=== PATIENT | male | born 1955 | race Caucasian/White ===

== ENCOUNTER 2017-06-05 03:49 | Emergency (ER) | payer OTHER ==
[~2017-06-05] VITALS: Ht 175.3 cm; Wt 104.3 kg
--- NOTE | 2017-06-05 04:00 | NUR ---
PT A/OX4 BREATHING EFFORTLESSLY ON ROOM AIR, PT WAS BIBA FROM [facility], PT STATES HE WAS SLEEPING AND WAS WOKEN UP FROM HIS SLEEP WITH PAIN IN HIS RIGHT TESTICLE, PT STATES HE THINKS HE HAS ANOTHER KIDNEY STONE, PT ON MONITOR, IV PLACED, LABS DRAWN, MD IN ROOM WILL CONTINUE TO MONITOR.
[2017-06-05] MEDS ORDERED: ONDANSETRON HCL/PF 4 MG/2 ML VIAL ONE (04:13)
[2017-06-05] MEDS ORDERED: HYDROMORPHONE INJ 0.5 MG/0.5 ML SYRINGE ONE ×2 (04:13→05:54)
[2017-06-05] MEDS ORDERED: KETOROLAC TROMETHAMINE 15 MG/ML VIAL ONE (04:13)
[2017-06-05 04:19] LABS: BASOPHILS % (AUTO) 0.5 % (0.0-2.0); EOSINOPHILS # (AUTO) 0.2 /CMM (0.0-0.7); EOSINOPHILS % (AUTO) 2.4 % (0.0-6.0); HEMATOCRIT 51 % (39-51); HEMOGLOBIN 17.6 g/dL (13.5-17.5); LYMPHOCYTES # (AUTO) 2.5 /CMM (0.8-4.8); LYMPHOCYTES % (AUTO) 37.3 % (20.0-44.0); MEAN CORPUSCULAR HEMOGLOBIN 29 PG (26.0-33.0); MEAN CORPUSCULAR HGB CONC 34 g/dl (31.0-36.0); MEAN CORPUSCULAR VOLUME 84 fL (80-96); MONOCYTES # (AUTO) 0.6 /CMM (0.1-1.30); MONOCYTES % (AUTO) 8.8 % (2.0-12.0); NEUTROPHILS # (AUTO) 3.4 /CMM (1.8-8.9); PLATELET COUNT (AUTO) 227 /CMM (150-450); RDW COEFFICIENT OF VARIATION 13.2 (11.5-15.0); RED BLOOD CELL COUNT(AUTO) 6.13 MIL/uL (4.5-6.0); WHITE BLOOD COUNT (AUTO) 6.7 K/uL (4.3-11.0)
[2017-06-05 04:28] LABS: CALCIUM, SERUM 9.3 mg/dL (8.5-10.1); CREATININE 1.2 mg/dL (0.6-1.3); POTASSIUM 3.9 mmol/L (3.5-5.1)
[2017-06-05] MEDS ORDERED: KETOROLAC TROMETHAMINE INJ 30 MG/ML VIAL IV ONE (04:30)
[2017-06-05] MEDS ORDERED: ONDANSETRON HCL/PF 4 MG/2 ML VIAL IVP ONE (04:30)
[2017-06-05] MEDS ORDERED: HYDROMORPHONE INJ 2 MG/ML DISP.SYRIN IV ONE (04:30)
[2017-06-05] MEDS ORDERED: IV NS 0.9% 1,000 ML BAG IV ONE (04:30)
--- NOTE | 2017-06-05 04:31 | NUR ---
URINE COLLECTED AND SENT TO LAB
[2017-06-05 04:38] LABS: APPEARANCE,URINE CLEAR (CLEAR); BILIRUBIN,URINE NEGATIVE (NEGATIVE); BLOOD, URINE NEGATIVE Ery/uL (NEGATIVE); COLOR,URINE YELLOW (YELLOW); KETONES,URINE NEGATIVE (NEGATIVE); LEUKOCYTE ESTERASE ,URINE NEGATIVE (NEGATIVE); NITRITE, URINE NEGATIVE (NEGATIVE); PH,URINE 5.5 (5.0-8.0); PROTEIN,URINE NEGATIVE (NEGATIVE); UGLUCOSE NEGATIVE (NEGATIVE); UROBILINOGEN,URINE 0.2 EU/dL (0.2)
[2017-06-05] MEDS ORDERED: HYDROMORPHONE INJ 0.5 MG/0.5 ML SYRINGE IV ONE (06:00)
--- NOTE | 2017-06-05 06:03 | NUR ---
PT IN BED ON MONITOR, VSS, PT IS A/OX4 BREATHING EFFORTLESSLY ON ROOM AIR, PT IS FEELING BETTER AFTER PAIN MEDICINE MD MADE AWARE WILL CONTINUE TO MONITOR.
--- NOTE | 2017-06-05 06:40 | NUR ---
REPORT GIVEN TO EMT
[2017-06-05 06:47] VITALS: BP 140/83
== END 2017-06-05 06:49 ==
LOC: ER 03:51
DX: N20.1 Calculus of ureter (principal); I10 Essential (primary) hypertension; F32.9 Major depressive disorder, single episode, unspecified; F41.9 Anxiety disorder, unspecified; Z88.0 Allergy status to penicillin; Z88.1 Allergy status to other antibiotic agents
CPT/HCPCS: 36415; 76870; 80048; 81001; 85025; 87086; 96361; 96374; 96375; 96376; 99285; A4606; J1885; J2405; J7030; Z7610; 81000-TC

== ENCOUNTER 2017-06-29 20:10 | Inpatient (IN) | payer OTHER ==
[~2017-06-29] VITALS: Ht 172.7 cm; Wt 107.5 kg
--- NOTE | 2017-06-29 20:10 | NUR ---
BBRA FROM [facility] PT NOTED WITH COUGH AND CONGESTION X TODAY WITH WEAKNESS GENERALIZED. UPON AUSCULTATION HEARD CONGESTION UPPER BILATERAL LOBES. A/OX4 VSS NAD WILL CONTINUE TO MONITOR FOR ANY CHANGES
[2017-06-29] MEDS ORDERED: IV NS 0.9% 1,000 ML BAG IV ONE (20:30)
--- NOTE | 2017-06-29 20:45 | NUR ---
BLOOD SENT TO LAB WITH GENERAL LABORER
[2017-06-29 20:48] LABS: BASOPHILS # (AUTO) 0.2 /CMM (0.0-0.2); BASOPHILS % (AUTO) 2.6 % (0.0-2.0); EOSINOPHILS # (AUTO) 0.1 /CMM (0.0-0.7); EOSINOPHILS % (AUTO) 2.3 % (0.0-6.0); HEMATOCRIT 49 % (39-51); HEMOGLOBIN 17.2 g/dL (13.5-17.5); LYMPHOCYTES # (AUTO) 1.3 /CMM (0.8-4.8); LYMPHOCYTES % (AUTO) 21.3 % (20.0-44.0); MEAN CORPUSCULAR HEMOGLOBIN 29 PG (26.0-33.0); MEAN CORPUSCULAR HGB CONC 35 g/dl (31.0-36.0); MEAN CORPUSCULAR VOLUME 82 fL (80-96); MONOCYTES # (AUTO) 0.6 /CMM (0.1-1.30); MONOCYTES % (AUTO) 10.3 % (2.0-12.0); NEUTROPHILS # (AUTO) 3.8 /CMM (1.8-8.9); NEUTROPHILS % (AUTO) 63.5 % (43.0-81.0); PLATELET COUNT (AUTO) 173 /CMM (150-450); RDW COEFFICIENT OF VARIATION 12.9 (11.5-15.0); RED BLOOD CELL COUNT(AUTO) 5.96 MIL/uL (4.5-6.0)
--- NOTE | 2017-06-29 20:48 | NUR ---
XRAY AT BEDSIDE
--- NOTE | 2017-06-29 21:14 | NUR ---
CALLED NURSING SUP. FOR TELE BED
[2017-06-29 21:15] LABS: ALANINE AMINOTRANSFERASE 51 U/L (12-78); ALBUMIN 3.5 g/dL (3.4-5.0); ALKALINE PHOSPHATASE 71 U/L (46-116); ASPARTATE AMINOTRANSFERASE 42 U/L (15-37); BILIRUBIN,DIRECT 0.1 mg/dL (0.0-0.2); BILIRUBIN,TOTAL 0.6 mg/dL (0.2-1.0); CALCIUM, SERUM 8.8 mg/dL (8.5-10.1); CARBON DIOXIDE 26 mmol/L (21-32); CHLORIDE 101 mmol/L (98-107); CREATININE 1.1 mg/dL (0.6-1.3); GLUCOSE 125 mg/dL (74-106); POTASSIUM 3.8 mmol/L (3.5-5.1); SODIUM SERUM 136 mmol/L (136-145); TOTAL PROTEIN, SERUM 7.7 g/dL (6.4-8.2); UREA NITROGEN, BLOOD 15 mg/dL (7-18)
[2017-06-29 21:18] LABS: TROPONIN I < 0.017 ng/mL (0.00-0.056)
--- NOTE | 2017-06-29 21:35 | NUR ---
TELE 312-2, PNEUMONIA, DR.SAM Harris ADMITTING
--- NOTE | 2017-06-29 21:51 | NUR ---
PT CHANGED TO 314-2.
[2017-06-29 21:54] LABS: APPEARANCE,URINE CLEAR (CLEAR); BILIRUBIN,URINE NEGATIVE (NEGATIVE); BLOOD, URINE NEGATIVE Ery/uL (NEGATIVE); COLOR,URINE YELLOW (YELLOW); KETONES,URINE NEGATIVE (NEGATIVE); LEUKOCYTE ESTERASE ,URINE NEGATIVE (NEGATIVE); NITRITE, URINE NEGATIVE (NEGATIVE); PROTEIN,URINE NEGATIVE (NEGATIVE); UGLUCOSE NEGATIVE (NEGATIVE)
--- NOTE | 2017-06-29 21:56 | NUR ---
REPORT GIVEN TO BRITTANEY HOLLIS FOR FLIP.
[2017-06-29 21:58] LABS: UROBILINOGEN,URINE 0.2 EU/dL (0.2)
[2017-06-29 22:00] VITALS: BP 152/107
[2017-06-29 22:00] LABS: INR 1.02 (0.87-1.13)
[2017-06-29] MEDS ORDERED: LEVOFLOXACIN 750 MG /D5W 150ML 150 ML IV ONE (22:30)
[2017-06-29] MEDS ORDERED: HYDROCODONE/APAP 5/325MG 1 EACH TABLET PO PRN (22:30)
[2017-06-29] MEDS ORDERED: IPRATROPIUM NEB FS 0.5 MG/2.5 ML AMPUL.NEB NEB PRN (22:30)
[2017-06-29] MEDS ORDERED: Z GUARD REMEDY 2 OZ OINT TP PRN (22:30)
[2017-06-29] MEDS ORDERED: MAGNESIUM HYDROXIDE 30 ML UDC PO PRN (22:30)
[2017-06-29] MEDS ORDERED: ALBUTEROL FS 2.5 MG/0.5 ML VIAL.NEB NEB PRN (22:30)
[2017-06-29] MEDS ORDERED: MAG HYDROX/AL HYDROX/SIMETH 30 ML UDC PO PRN (22:30)
[2017-06-29] MEDS ORDERED: ACETAMINOPHEN 325 MG TABLET PO PRN (22:30)
[2017-06-29] MEDS ORDERED: ZOLPIDEM TARTRATE 5 MG TABLET PO PRN (22:30)
[2017-06-29] MEDS ORDERED: ONDANSETRON HCL/PF 4 MG/2 ML VIAL IVP PRN (22:30)
--- NOTE | 2017-06-29 22:30 | NUR ---
RN OPENING NOTES RECEIVED PATIENT FROM ER. VS STABLE. ALERT AND ORIENTED X4. PATIENT C/O COUGH AND CONGESTION. RESPIRATIONS EVEN AND UNLABORED. NO SOB NOTED. BS X4. ON NC 2 L. TELE MONITOR IS IN PLACE, SR 87 BMP WITH 1 DEGREE AV BLOCK. IV ACCESS ON RIGHT FA PATENT AND INTACT, NO REDNESS OR INFILTRATION NOTED. WAITING FOR MD ORDERS. BED IN LOW AND LOCKED POSITION, SIDE RAILS X2. CALL LIGHT WITHIN EASY REACH. WILL CONTINUE TO MONITOR AND ASSESS DURING THE SHIFT.
[2017-06-29] MEDS ORDERED: ENOXAPARIN SODIUM 40 MG/0.4 ML DISP.SYRIN SQ ONE (23:30)
[2017-06-30] VITALS: BP 155/94
[2017-06-30] MEDS ORDERED: clonazePAM 0.5 MG TABLET PO ONE (02:00)
--- NOTE | 2017-06-30 02:00 | NUR ---
RN NOTES PATIENT IS RESTLESS AND AGITATED. CALLED DR JOSEPH AND OBTAINED ORDER OF KLONOPIN 0.5 MG PO ONE TIME DOSE. WILL CONTINUE TO MONITOR.
[2017-06-30 04:00] VITALS: BP 131/80
[2017-06-30] MEDS ORDERED: CLON0.5T PO (05:19)
[2017-06-30] MEDS ORDERED: MIRT45TA PO (05:19)
--- NOTE | 2017-06-30 06:48 | NUR ---
RN CLOSING NOTES PATIENT IS SLEEPING IN BED, EASY TO AROUSE, ALERT AND ORIENTED X4. NO PAIN OR DISCOMFORT NOTED AT THIS TIME. RESPIRATIONS EVEN AND UNLABORED. NO SOB NOTED. TELE MONITOR IS IN PLACE, SR 74 BMP WITH 1 DEGREE AV BLOCK. IV ACCESS ON RIGHT FA PATENT AND INTACT, NO REDNESS OR INFILTRATION NOTED. ALL NEEDS ARE MET AND MEDICATIONS GIVEN PER MD ORDER. BED IN LOW AND LOCKED POSITION, SIDE RAILS X2. CALL LIGHT WITHIN EASY REACH. WILL ENDORSE TO RN DAY SHIFT FOR FLIP.
--- NOTE | 2017-06-30 07:15 | NUR ---
REPORT RECEIVED AT THE BEDSIDE. PATIENT IS SLEEPING. NO SOB OR DISTRESS NOTED AT THIS TIME. HEART RATE SR WITH FIRST DEGREE AV BLOCK AT 73. PATIENT DOES NOT APPEAR TO BE IN PAIN, NO FACIAL GRIMACE. BED IN A LOW POSITION, CALL LIGHT WITHIN REACH. WILL CONTINUE TO MONITOR.
[2017-06-30 07:19] LABS: BASOPHILS % (AUTO) 0.7 % (0.0-2.0); EOSINOPHILS # (AUTO) 0.1 /CMM (0.0-0.7); EOSINOPHILS % (AUTO) 2.4 % (0.0-6.0); HEMATOCRIT 47 % (39-51); HEMOGLOBIN 16.1 g/dL (13.5-17.5); LYMPHOCYTES # (AUTO) 1.7 /CMM (0.8-4.8); LYMPHOCYTES % (AUTO) 34.2 % (20.0-44.0); MEAN CORPUSCULAR HEMOGLOBIN 28 PG (26.0-33.0); MEAN CORPUSCULAR HGB CONC 34 g/dl (31.0-36.0); MEAN CORPUSCULAR VOLUME 84 fL (80-96); MONOCYTES # (AUTO) 0.7 /CMM (0.1-1.30); MONOCYTES % (AUTO) 13.8 % (2.0-12.0); NEUTROPHILS # (AUTO) 2.5 /CMM (1.8-8.9); NEUTROPHILS % (AUTO) 48.9 % (43.0-81.0); PLATELET COUNT (AUTO) 164 /CMM (150-450); RDW COEFFICIENT OF VARIATION 13.8 (11.5-15.0); RED BLOOD CELL COUNT(AUTO) 5.67 MIL/uL (4.5-6.0); WHITE BLOOD COUNT (AUTO) 5.1 K/uL (4.3-11.0)
[2017-06-30 07:34] LABS: CALCIUM, SERUM 8.6 mg/dL (8.5-10.1); CREATININE 1.1 mg/dL (0.6-1.3); MAGNESIUM 2.1 mg/dL (1.8-2.4); PHOSPHORUS 3.8 mg/dL (2.5-4.9)
[2017-06-30 07:37] LABS: THYROID STIMULATING HORMONE 3.137 uIU/mL (0.358-3.74)
[2017-06-30 08:00] VITALS: BP 130/94
--- NOTE | 2017-06-30 10:53 | NUR ---
INFORMED STEPHANIE MATOS THAT THE PATIENT NORMALLY TAKES HIS KLONIPINE AT BED TIME. SHAWNA STATES THIS IS FINE AND ASKS TO HAVE THE ORDER CHANGED. WILL CARRY OUT.
[2017-06-30] MEDS: ALBUTEROL FS 2.5 MG/0.5 ML VIAL.NEB NEB SCH ×3 (13:30→19:48)
[2017-06-30] MEDS: IPRATROPIUM NEB FS 0.5 MG/2.5 ML AMPUL.NEB NEB SCH ×3 (13:30→19:48)
[2017-06-30] MEDS ORDERED: KETOROLAC TROMETHAMINE INJ 30 MG/ML VIAL IM PRN (13:30)
[2017-06-30] MEDS: ACETYLCYSTEINE 10% SOLN 400 MG/4 ML VIAL NEB SCH ×3 (13:30→23:30)
--- NOTE | 2017-06-30 13:57 | NUR ---
RT NOTE: PATIENT IS WORKING WITH PT AT THIS TIME. I WILL FOLLOW UP WITH PATIENT WHEN HE IS BACK IN BED.
[2017-06-30] MEDS: IV NS 0.9% 1,000 ML IV PRN (14:49)
[2017-06-30 15:44] VITALS: BP 132/82
--- NOTE | 2017-06-30 17:24 | NUR ---
WAS GOING TO GIVE PT HIS REMERON FOR 1800 AND THE PATIENT STATES HE TAKES THIS MEDICATION AT BED TIME. PT ALSO STATES THAT HE TAKES PROPRANOLOL LA 60 MG DAILY. THIS MEDICATION IS NOT ON HIS MED LIST. CALLED SHAWNA TO ASK FOR ORDERS. SENIOR BUSINESS ARCHITECT STATES LONG HIS BP IS STABLE (AND IT HAS BEEN TODAY) TO START THE PROPRANOLOL TOMORROW MORNING. SENIOR BUSINESS ARCHITECT ALSO STATES OK TO CHANGE REMERON TO HS. WILL CARRY OUT ORDERS.
[2017-06-30] MEDS ORDERED: MIRTAZAPINE 45 MG TABLET PO SCH (18:00)
--- NOTE | 2017-06-30 19:00 | NUR ---
NO SIGNIFICANT CHANGES IN PATIENT CONDITION THROUGHOUT THE SHIFT. NO SOB OR DISTRESS NOTED AT THIS TIME. PATIENT DENIES PAIN. BED IN A LOW POSITION, CALL LIGHT WITHIN PATIENT REACH. WILL ENDORSE FOR FLIP.
--- NOTE | 2017-06-30 19:30 | NUR ---
MS RN OPENING NOTES RECEIVED PT IN BED, ALERT, AWAKE, VERBALLY RESPONSIVE. ON O2 VIA N/C AT 2L/MIN, RESPIRATIONS EVEN, UNLABORED, NO APPARENT DISTRESS NOTED. DENIES ANY PAIN OR DISCOMFORT AT THIS TIME. IV SITE RT FA INTACT, PATENT. CALL LIGHT WITHIN REACH. BED LOCKED IN LOWEST POSITION.KEPT CLEAN AND COMFORTABLE, ATTENDED ALL NEEDS. WILL CONTINUE TO MONITOR ACCORDINGLY.
[2017-06-30 20:00] VITALS: BP 134/89
[2017-06-30] MEDS: ENOXAPARIN SODIUM 40 MG/0.4 ML DISP.SYRIN SQ SCH (21:08)
[2017-06-30] MEDS ORDERED: LEVOFLOXACIN 750 MG /D5W 150ML 150 ML IV ONE (21:21)
[2017-06-30] MEDS: LEVOFLOXACIN 750 MG /D5W 150ML 750 MG in PREMIX 1 EA IV SCH (21:29)
[2017-06-30 22:00] VITALS: BP 134/89
[2017-06-30] MEDS: MIRTAZAPINE 45 MG TABLET PO SCH (22:57)
[2017-06-30] MEDS: clonazePAM 0.5 MG TABLET PO SCH (22:57)
[2017-07-01] MEDS: IV NS 0.9% 1,000 ML IV PRN (05:12)
--- NOTE | 2017-07-01 06:33 | NUR ---
MS RN CLOSING NOTES PT IN BED, RESTING COMFORTABLY,ON O2 VIA N/C AT 2L/MIN, O2 SAT 97%. DENIES ANY PAIN OR DISCOMFORT AT THIS TIME. IV SITE RT FA INTACT, PATENT. CALL LIGHT WITHIN REACH. KEPT CLEAN AND COMFORTABLE.ATTENDED ALL NEEDS. WILL CONTINUE TO MONITOR ACCORDINGLY.
--- NOTE | 2017-07-01 07:25 | NUR ---
ms rn initial notes Received patient in bed, awake, head of bed elevated, no SOB or distress noted, on 02 @ 2lpm via NC and tolerated well. IV intact and patent with IVF infusing well. No complaint of pain or discomfort at this time. Kept patient clean and comfortable in bed, call light with in patient reach, will continue to monitor accordingly.
[2017-07-01] MEDS: ACETYLCYSTEINE 10% SOLN 400 MG/4 ML VIAL NEB SCH ×3 (07:35→23:30)
[2017-07-01 07:58] LABS: BASOPHILS % (AUTO) 0.4 % (0.0-2.0); EOSINOPHILS # (AUTO) 0.2 /CMM (0.0-0.7); EOSINOPHILS % (AUTO) 3.9 % (0.0-6.0); HEMATOCRIT 45 % (39-51); HEMOGLOBIN 15.3 g/dL (13.5-17.5); LYMPHOCYTES # (AUTO) 1.8 /CMM (0.8-4.8); LYMPHOCYTES % (AUTO) 37.6 % (20.0-44.0); MEAN CORPUSCULAR HEMOGLOBIN 29 PG (26.0-33.0); MEAN CORPUSCULAR HGB CONC 34 g/dl (31.0-36.0); MEAN CORPUSCULAR VOLUME 84 fL (80-96); MONOCYTES # (AUTO) 0.6 /CMM (0.1-1.30); MONOCYTES % (AUTO) 11.8 % (2.0-12.0); NEUTROPHILS # (AUTO) 2.3 /CMM (1.8-8.9); NEUTROPHILS % (AUTO) 46.3 % (43.0-81.0); PLATELET COUNT (AUTO) 153 /CMM (150-450); RDW COEFFICIENT OF VARIATION 13.6 (11.5-15.0); RED BLOOD CELL COUNT(AUTO) 5.36 MIL/uL (4.5-6.0); WHITE BLOOD COUNT (AUTO) 4.9 K/uL (4.3-11.0)
[2017-07-01 08:00] VITALS: BP 134/83
[2017-07-01] MEDS: ALBUTEROL FS 2.5 MG/0.5 ML VIAL.NEB NEB SCH ×4 (08:01→19:54)
[2017-07-01] MEDS: IPRATROPIUM NEB FS 0.5 MG/2.5 ML AMPUL.NEB NEB SCH ×4 (08:01→19:54)
[2017-07-01 08:08] LABS: CALCIUM, SERUM 8.4 mg/dL (8.5-10.1); PHOSPHORUS 4.3 mg/dL (2.5-4.9)
[2017-07-01] MEDS: PROPRANOLOL LA 60 MG CAP.SA.24H PO SCH (08:37)
[2017-07-01] MEDS ORDERED: clonazePAM 0.5 MG TABLET PO SCH (09:00)
[2017-07-01 16:00] VITALS: BP_SYST 129; BP_SYST 147; BP_DIAS 74; BP_DIAS 78
[2017-07-01] MEDS: methylPREDNISolone SOD SUCC 40 MG/ML VIAL IV SCH ×2 (16:29→21:20)
--- NOTE | 2017-07-01 19:00 | NUR ---
RN OPENING NOTES PT AWAKE AND RESTING IN BED. NO COMPLAINTS OF PAIN, SOB, OR DISTRESS AT THIS TIME. PT IS ON 2L OF 02 VIA NASAL CANNULA. PT HAS A RIGHT FOREARM IV #22 RUNNING NS @ 75ML/HR, PT TOLERATING FLUIDS WELL. SAFETY PRECAUTIONS IN PLACE. BED IN LOW LOCKED POSITION, X2 SIDE RAILS UP, CALL LIGHT WITHIN REACH. WILL CONTINUE TO MONITOR.
--- NOTE | 2017-07-01 19:16 | NUR ---
ms rn closing notes All needs provided, attended, and anticipated, kept patient clean and comfortable in bed Endorsed to next shift RN to continue care.
[2017-07-01 20:00] VITALS: BP 139/75
[2017-07-01] MEDS: clonazePAM 0.5 MG TABLET PO SCH (22:41)
[2017-07-01] MEDS: LEVOFLOXACIN 750 MG /D5W 150ML 750 MG in PREMIX 1 EA IV SCH (22:41)
[2017-07-01] MEDS: MIRTAZAPINE 45 MG TABLET PO SCH (22:41)
[2017-07-01] MEDS: ENOXAPARIN SODIUM 40 MG/0.4 ML DISP.SYRIN SQ SCH (22:42)
[2017-07-02] MEDS: IV NS 0.9% 1,000 ML IV PRN (02:20)
[2017-07-02] MEDS: methylPREDNISolone SOD SUCC 40 MG/ML VIAL IV SCH (05:18)
[2017-07-02 07:15] LABS: CREATININE 0.9 mg/dL (0.6-1.3); MAGNESIUM 2.1 mg/dL (1.8-2.4); PHOSPHORUS 2.7 mg/dL (2.5-4.9); POTASSIUM 4.4 mmol/L (3.5-5.1)
--- NOTE | 2017-07-02 07:15 | NUR ---
RN CLOSING NOTES PT RESTING IN BED. NO COMPLAINTS OF PAIN, SOB, OR DISTRESS OVERNIGHT. PT IS ON 2L OF 02 VIA NASAL CANNULA. PT HAS A RIGHT FOREARM IV #22 RUNNING NS @ 75ML/HR, PT TOLERATING FLUIDS WELL. SAFETY PRECAUTIONS IN PLACE. BED IN LOW LOCKED POSITION, X2 SIDE RAILS UP, CALL LIGHT WITHIN REACH. ALL PATIENT NEEDS MET. WILL ENDORSE TO DAY SHIFT NURSE FOR CONTINUITY OF CARE.
[2017-07-02 07:20] LABS: BASOPHILS % (AUTO) 0.1 % (0.0-2.0); HEMATOCRIT 46 % (39-51); HEMOGLOBIN 15.4 g/dL (13.5-17.5); LYMPHOCYTES # (AUTO) 1.1 /CMM (0.8-4.8); MEAN CORPUSCULAR HEMOGLOBIN 28 PG (26.0-33.0); MEAN CORPUSCULAR HGB CONC 34 g/dl (31.0-36.0); MEAN CORPUSCULAR VOLUME 84 fL (80-96); MONOCYTES # (AUTO) 0.1 /CMM (0.1-1.30); MONOCYTES % (AUTO) 1.5 % (2.0-12.0); NEUTROPHILS # (AUTO) 5.7 /CMM (1.8-8.9); NEUTROPHILS % (AUTO) 82.4 % (43.0-81.0); PLATELET COUNT (AUTO) 172 /CMM (150-450); RDW COEFFICIENT OF VARIATION 13.6 (11.5-15.0); RED BLOOD CELL COUNT(AUTO) 5.44 MIL/uL (4.5-6.0); WHITE BLOOD COUNT (AUTO) 6.9 K/uL (4.3-11.0)
--- NOTE | 2017-07-02 07:25 | NUR ---
ms rn initial notes Received patient in bed, asleep, head of bed elevated, no SOB or distress noted, on 02 @ 2lpm via NC with 02 sat of 98%. No facial grimace noted. IV intact and patent with IVF infusing well. Call light with in patient reach, will continue to monitor accordingly.
[2017-07-02] MEDS: ALBUTEROL FS 2.5 MG/0.5 ML VIAL.NEB NEB SCH ×2 (07:32→11:38)
[2017-07-02] MEDS: IPRATROPIUM NEB FS 0.5 MG/2.5 ML AMPUL.NEB NEB SCH ×2 (07:32→11:38)
[2017-07-02] MEDS: ACETYLCYSTEINE 10% SOLN 400 MG/4 ML VIAL NEB SCH (07:35)
[2017-07-02 08:00] VITALS: BP 140/89
[2017-07-02 08:44] VITALS: BP 140/89
[2017-07-02] MEDS: PROPRANOLOL LA 60 MG CAP.SA.24H PO SCH (08:44)
[2017-07-02] MEDS ORDERED: LEVO500T75 PO (10:28)
[2017-07-02] MEDS ORDERED: METH4TAB3 PO (10:28)
--- NOTE | 2017-07-02 13:00 | NUR ---
ms staff rn notes Discharge instructions given to patient and able to understand instructions. Signed discharge paper and belonging list, no items missing. Sister made aware of the discharge. Called [facility] and spoke to [place] and report given. IV discontinued and pressured applied to prevent bleeding. On room air with 02 saturation of 97%, no complaint of pain or discomfort at this time, nor chest pain. Ambulance came to [facility] the patient. Left via gurney accompanied by 2 EMT in stable condition. Flu and pneumonia vaccine refused, explained the risk and benefits x 3, and still refused. Vital signs checked and recorded. MD and charge nurse made aware. Addendum: 07/02/17 at 1354 by LOLLY PAYNE skin intact.
== END 2017-07-02 13:10 | DRG 113 ==
LOC: ER 20:13 → TELE 21:39 → MED 06-30 12:08
DX: J06.9 Acute upper respiratory infection, unspecified (principal); G61.0 Guillain-Barre syndrome; F32.9 Major depressive disorder, single episode, unspecified; F41.9 Anxiety disorder, unspecified; I10 Essential (primary) hypertension; N20.0 Calculus of kidney; Z87.442 Personal history of urinary calculi; M54.5 Low back pain; Z86.718 Personal history of other venous thrombosis and embolism; Z88.1 Allergy status to other antibiotic agents; Z88.0 Allergy status to penicillin; E78.5 Hyperlipidemia, unspecified; R09.02 Hypoxemia
CPT/HCPCS: 36415; 71045-TC; 80048-TC; 80061-TC; 80076-TC; 81000-TC; 83605-TC; 83735-TC; 84100-TC; 84443-TC; 84484-TC; 85025-TC; 85730-TC; 87040-TC; 87081-TC; 87086-TC; 87400; 94799-TC; A4216; A4606; J1650; J1956; J2920; J7030; J7050; J7060; Z7610

== ENCOUNTER 2017-07-11 19:53 | Emergency (ER) | payer OTHER ==
[~2017-07-11] VITALS: Ht 175.3 cm; Wt 103.4 kg
[~2017-07-11 19:53] MED LIST: CLON0.5T PO; LEVO500T75 PO; METH4TAB3 PO; MIRT45TA PO
--- NOTE | 2017-07-11 20:00 | NUR ---
BB EMS FROM [facility] FOR FEVER AND WEAKNESS, NAD NOTED, VSS, RESP EVEN AND UNLABORED, PT WAS PUT ON MONITOR, WAITING FOR MD MCWILLIAMS.
[2017-07-11 20:57] LABS: BASOPHILS # (AUTO) 0.3 /CMM (0.0-0.2); BASOPHILS % (AUTO) 2.7 % (0.0-2.0); EOSINOPHILS # (AUTO) 0.2 /CMM (0.0-0.7); EOSINOPHILS % (AUTO) 2.5 % (0.0-6.0); HEMATOCRIT 49 % (39-51); LYMPHOCYTES # (AUTO) 2.8 /CMM (0.8-4.8); LYMPHOCYTES % (AUTO) 29.1 % (20.0-44.0); MEAN CORPUSCULAR HEMOGLOBIN 29 PG (26.0-33.0); MEAN CORPUSCULAR HGB CONC 35 g/dl (31.0-36.0); MEAN CORPUSCULAR VOLUME 83 fL (80-96); MONOCYTES # (AUTO) 0.7 /CMM (0.1-1.30); MONOCYTES % (AUTO) 6.9 % (2.0-12.0); NEUTROPHILS # (AUTO) 5.8 /CMM (1.8-8.9); NEUTROPHILS % (AUTO) 58.8 % (43.0-81.0); PLATELET COUNT (AUTO) 254 /CMM (150-450); RDW COEFFICIENT OF VARIATION 13.3 (11.5-15.0); RED BLOOD CELL COUNT(AUTO) 5.88 MIL/uL (4.5-6.0); WHITE BLOOD COUNT (AUTO) 9.8 K/uL (4.3-11.0)
[2017-07-11 21:09] LABS: CALCIUM, SERUM 8.9 mg/dL (8.5-10.1); POTASSIUM 4.3 mmol/L (3.5-5.1)
--- NOTE | 2017-07-11 21:33 | NUR ---
CALLED [facility] FOR TRANSPORT ETA OF [phone] WAS GIVEN. TRIP#[id number]
[2017-07-11 22:27] VITALS: BP 138/85
--- NOTE | 2017-07-11 22:30 | NUR ---
Patient discharged to [facility] in stable condition. Written and verbal after care instructions given. Patient verbalizes understanding of instruction.
== END 2017-07-11 22:38 ==
LOC: ER 19:55
DX: R53.1 Weakness (principal); F32.9 Major depressive disorder, single episode, unspecified; F41.9 Anxiety disorder, unspecified; G61.0 Guillain-Barre syndrome; M54.5 Low back pain; I10 Essential (primary) hypertension; Z87.442 Personal history of urinary calculi; Z88.0 Allergy status to penicillin; Z88.1 Allergy status to other antibiotic agents; Z86.718 Personal history of other venous thrombosis and embolism
CPT/HCPCS: 36415; 71045; 80048; 85025; 99285; A4606; Z7610

== ENCOUNTER 2017-07-18 12:07 | Inpatient (IN) | payer OTHER ==
[~2017-07-18] VITALS: Ht 175.3 cm; Wt 103.4 kg
[2017-07-18 13:08] LABS: BASOPHILS % (AUTO) 0.2 % (0.0-2.0); EOSINOPHILS # (AUTO) 0.4 /CMM (0.0-0.7); EOSINOPHILS % (AUTO) 3.5 % (0.0-6.0); HEMATOCRIT 49 % (39-51); HEMOGLOBIN 16.8 g/dL (13.5-17.5); LYMPHOCYTES # (AUTO) 1.9 /CMM (0.8-4.8); LYMPHOCYTES % (AUTO) 19.4 % (20.0-44.0); MEAN CORPUSCULAR HEMOGLOBIN 29 PG (26.0-33.0); MEAN CORPUSCULAR HGB CONC 34 g/dl (31.0-36.0); MEAN CORPUSCULAR VOLUME 83 fL (80-96); MONOCYTES # (AUTO) 0.9 /CMM (0.1-1.30); MONOCYTES % (AUTO) 8.7 % (2.0-12.0); NEUTROPHILS # (AUTO) 6.8 /CMM (1.8-8.9); NEUTROPHILS % (AUTO) 68.2 % (43.0-81.0); PLATELET COUNT (AUTO) 212 /CMM (150-450); RDW COEFFICIENT OF VARIATION 13.2 (11.5-15.0); RED BLOOD CELL COUNT(AUTO) 5.88 MIL/uL (4.5-6.0)
[2017-07-18 13:16] LABS: CALCIUM, SERUM 9.1 mg/dL (8.5-10.1); CREATININE 1.2 mg/dL (0.6-1.3); POTASSIUM 4.3 mmol/L (3.5-5.1)
[2017-07-18 13:22] LABS: ALBUMIN 3.3 g/dL (3.4-5.0); BILIRUBIN,DIRECT 0.2 mg/dL (0.0-0.2); BILIRUBIN,TOTAL 0.6 mg/dL (0.2-1.0); TOTAL PROTEIN, SERUM 7.5 g/dL (6.4-8.2)
[2017-07-18 13:23] LABS: TROPONIN I 0.096 ng/mL (0.00-0.056)
[2017-07-18 13:25] LABS: INR 1.01 (0.85-1.15)
[2017-07-18] MEDS ORDERED: LEVOFLOXACIN 750 MG /D5W 150ML 150 ML IV ONE ×2 (13:30→13:37)
[2017-07-18] MEDS ORDERED: BISA10SU8 RC (13:31)
[2017-07-18] MEDS ORDERED: MAGN400O6 PO (13:31)
[2017-07-18] MEDS ORDERED: NA P133E RC (13:31)
[2017-07-18] MEDS ORDERED: ACET-868 PO (13:31)
[2017-07-18] MEDS ORDERED: HYDR-3974 PO (13:31)
[2017-07-18] MEDS ORDERED: MIRT45TA PO (13:31)
[2017-07-18] MEDS ORDERED: ACETAMINOPHEN ES 500 MG TABLET ONE (13:37)
[2017-07-18 13:39] LABS: APPEARANCE,URINE Clear (CLEAR); BILIRUBIN,URINE Negative (NEGATIVE); BLOOD, URINE Negative Ery/uL (NEGATIVE); COLOR,URINE Dark (YELLOW); KETONES,URINE Trace (NEGATIVE); LEUKOCYTE ESTERASE ,URINE Negative (NEGATIVE); NITRITE, URINE Negative (NEGATIVE); PH,URINE 5.5 (5.0-8.0); PROTEIN,URINE Negative (NEGATIVE); UGLUCOSE Negative (NEGATIVE); UROBILINOGEN,URINE 0.2 EU/dL (0.2)
[2017-07-18 13:41] LABS: BACTERIA,URINE Rare /HPF (None Seen); RBC,URINE 0-2 /HPF (0-2); SQUAMOUS EPITHELIAL CELL,UR Rare /HPF (None Seen); WBC,URINE 0-2 /HPF (0-3)
[2017-07-18] MEDS ORDERED: IOHEXOL-350 100 ML VIAL IV ONE (13:49)
[2017-07-18] MEDS ORDERED: IV NS 0.9% 250 ML IV ONE (13:49)
[2017-07-18] MEDS ORDERED: CT SWABBABLE VALVE TRANS SET 1 EA INFUS.SET MC ONE (13:49)
[2017-07-18 14:00] VITALS: BP 154/100
[2017-07-18] MEDS ORDERED: IV NS 0.9% 1,000 ML BAG IV ONE (14:00)
[2017-07-18] MEDS ORDERED: ACETAMINOPHEN ES 500 MG TABLET PO ONE (14:00)
[2017-07-18] MEDS ORDERED: BISACODYL SUPP (10 MG) 10 MG/SUPP.RECT SUPP.RECT RC PRN ×2 (14:30→16:00)
[2017-07-18] MEDS ORDERED: MAGNESIUM HYDROXIDE 30 ML UDC PO PRN ×4 (14:30→16:00)
[2017-07-18] MEDS ORDERED: Z GUARD REMEDY 2 OZ OINT TP PRN ×2 (14:30→16:00)
[2017-07-18] MEDS ORDERED: clonazePAM 0.5 MG TABLET PO PRN (14:30)
[2017-07-18] MEDS ORDERED: HEPARIN SODIUM, PORCINE 5000 UNITS/1 ML VIAL IV ONE (14:30)
[2017-07-18] MEDS ORDERED: MAG HYDROX/AL HYDROX/SIMETH 30 ML UDC PO PRN ×2 (14:30→16:00)
[2017-07-18] MEDS ORDERED: HEPARIN INFUSION/D5W 500 ML IV ONE (14:30)
[2017-07-18] MEDS ORDERED: ONDANSETRON HCL/PF 4 MG/2 ML VIAL IVP PRN ×2 (14:30→16:00)
[2017-07-18] MEDS ORDERED: MORPHINE SULFATE INJ 2 MG/ML DISP.SYRIN IV PRN ×2 (14:30→16:00)
[2017-07-18] MEDS ORDERED: ACETAMINOPHEN 325 MG TABLET PO PRN ×2 (14:30→16:00)
[2017-07-18] MEDS ORDERED: HYDROCODONE/APAP 5/325MG 1 EACH TABLET PO PRN ×2 (14:30→16:00)
[2017-07-18] MEDS ORDERED: ZOLPIDEM TARTRATE 5 MG TABLET PO PRN ×2 (14:30→16:00)
[2017-07-18] MEDS ORDERED: ASPIRIN 325 MG TABLET PO ONE (14:30)
[2017-07-18] MEDS ORDERED: NA PHOS,M-B/NA PHOS,DI-BA 1 EA ENEMA RC PRN ×2 (14:30→16:00)
[2017-07-18] MEDS ORDERED: HEPARIN INFUSION/D5W 0 ML IV ONE (14:31)
[2017-07-18] MEDS ORDERED: HEPARIN SODIUM, PORCINE 5000 UNITS/1 ML VIAL ONE (14:32)
[2017-07-18] MEDS ORDERED: ASPIRIN 325 MG TABLET ONE (14:47)
[2017-07-18] MEDS: ENOXAPARIN SODIUM 100 MG/ML DISP.SYRIN SQ SCH (14:52)
[2017-07-18 18:00] VITALS: BP 154/100
[2017-07-18] MEDS: MIRTAZAPINE 15 MG TABLET PO SCH (21:38)
[2017-07-18] MEDS: clonazePAM 0.5 MG TABLET PO PRN (21:39)
[2017-07-18 22:00] VITALS: BP 134/99
[2017-07-18] MEDS ORDERED: MIRTAZAPINE 45 MG TABLET PO SCH (22:00)
[2017-07-19] VITALS (9 sets, daily range): BP systolic 101–141; BP diastolic 22–94
[2017-07-19] MEDS: ENOXAPARIN SODIUM 100 MG/ML DISP.SYRIN SQ SCH ×2 (03:09→14:47)
[2017-07-19] MEDS ORDERED: ASPIRIN 325 MG TABLET PO SCH ×2 (09:00)
[2017-07-19] MEDS: ATORVASTATIN 10 MG TABLET PO SCH (09:47)
[2017-07-19] MEDS: IV NS 0.9% 1,000 ML IV PRN ×2 (09:47→21:09)
[2017-07-19] MEDS: clonazePAM 0.5 MG TABLET PO PRN (16:30)
[2017-07-19] MEDS: MIRTAZAPINE 15 MG TABLET PO SCH (21:10)
[2017-07-20] VITALS: BP 142/93
[2017-07-20] MEDS: ENOXAPARIN SODIUM 100 MG/ML DISP.SYRIN SQ SCH ×2 (03:06→15:32)
[2017-07-20 04:00] VITALS: BP 136/93
[2017-07-20] MEDS: IV NS 0.9% 1,000 ML IV PRN (04:47)
[2017-07-20 06:26] LABS: BASOPHILS % (AUTO) 0.5 % (0.0-2.0); EOSINOPHILS # (AUTO) 0.6 /CMM (0.0-0.7); EOSINOPHILS % (AUTO) 7.4 % (0.0-6.0); HEMATOCRIT 44 % (39-51); HEMOGLOBIN 14.9 g/dL (13.5-17.5); LYMPHOCYTES # (AUTO) 2.4 /CMM (0.8-4.8); LYMPHOCYTES % (AUTO) 30.3 % (20.0-44.0); MEAN CORPUSCULAR HEMOGLOBIN 28 PG (26.0-33.0); MEAN CORPUSCULAR HGB CONC 34 g/dl (31.0-36.0); MEAN CORPUSCULAR VOLUME 84 fL (80-96); MONOCYTES # (AUTO) 0.6 /CMM (0.1-1.30); MONOCYTES % (AUTO) 7.5 % (2.0-12.0); NEUTROPHILS # (AUTO) 4.2 /CMM (1.8-8.9); NEUTROPHILS % (AUTO) 54.3 % (43.0-81.0); PLATELET COUNT (AUTO) 211 /CMM (150-450); RDW COEFFICIENT OF VARIATION 13.7 (11.5-15.0); RED BLOOD CELL COUNT(AUTO) 5.27 MIL/uL (4.5-6.0); WHITE BLOOD COUNT (AUTO) 7.8 K/uL (4.3-11.0)
[2017-07-20 06:41] LABS: TROPONIN I < 0.017 ng/mL (0.00-0.056)
[2017-07-20 06:44] LABS: ALANINE AMINOTRANSFERASE 39 U/L (12-78); ALBUMIN 2.8 g/dL (3.4-5.0); ALKALINE PHOSPHATASE 59 U/L (46-116); ASPARTATE AMINOTRANSFERASE 22 U/L (15-37); BILIRUBIN,TOTAL 0.8 mg/dL (0.2-1.0); CALCIUM, SERUM 8.5 mg/dL (8.5-10.1); CARBON DIOXIDE 28 mmol/L (21-32); CHLORIDE 105 mmol/L (98-107); GLUCOSE 119 mg/dL (74-106); MAGNESIUM 2.1 mg/dL (1.8-2.4); POTASSIUM 4.3 mmol/L (3.5-5.1); SODIUM SERUM 141 mmol/L (136-145); TOTAL PROTEIN, SERUM 6.6 g/dL (6.4-8.2); UREA NITROGEN, BLOOD 12 mg/dL (7-18)
[2017-07-20 08:00] VITALS: BP 131/92
[2017-07-20] MEDS: ATORVASTATIN 10 MG TABLET PO SCH (09:12)
[2017-07-20] MEDS: APIXABAN 5 MG TABLET PO SCH ×2 (10:50→18:08)
[2017-07-20 12:00] VITALS: BP 131/92
[2017-07-20 16:00] VITALS: BP 141/83
[2017-07-20 20:00] VITALS: BP 146/93
[2017-07-20] MEDS: MIRTAZAPINE 15 MG TABLET PO SCH (21:36)
[2017-07-20] MEDS: clonazePAM 0.5 MG TABLET PO PRN (21:36)
[2017-07-21] MEDS: ENOXAPARIN SODIUM 100 MG/ML DISP.SYRIN SQ SCH (02:40)
[2017-07-21 04:00] VITALS: BP 131/87
[2017-07-21 08:00] VITALS: BP_SYST 144; BP_SYST 145; BP_DIAS 75; BP_DIAS 76
[2017-07-21] MEDS: ATORVASTATIN 10 MG TABLET PO SCH (08:47)
[2017-07-21] MEDS: APIXABAN 5 MG TABLET PO SCH (08:47)
[2017-07-21] MEDS ORDERED: APIX5TAB PO (10:55)
[2017-07-21 12:00] VITALS: BP 148/96
== END 2017-07-21 14:43 | DRG 190 ==
LOC: ER 12:10 → TELE1 16:01 → MEDSG1 07-21 00:21
PROVIDERS: ADMIT Internal Medicine; ATTEND Internal Medicine
DX: I21.4 Non-ST elevation (NSTEMI) myocardial infarction (principal); I26.99 Other pulmonary embolism without acute cor pulmonale; J96.01 Acute respiratory failure with hypoxia; I10 Essential (primary) hypertension; F41.9 Anxiety disorder, unspecified; E78.5 Hyperlipidemia, unspecified; Z87.442 Personal history of urinary calculi; Z86.718 Personal history of other venous thrombosis and embolism; F32.9 Major depressive disorder, single episode, unspecified; Z88.1 Allergy status to other antibiotic agents; Z88.0 Allergy status to penicillin; Z79.899 Other long term (current) drug therapy; G62.9 Polyneuropathy, unspecified; I82.412 Acute embolism and thrombosis of left femoral vein; I82.432 Acute embolism and thrombosis of left popliteal vein
CPT/HCPCS: 36415; 71045-TC; 80048-TC; 80053-TC; 80076-TC; 81000-TC; 83605-TC; 83735-TC; 83880; 84100-TC; 84484-TC; 85025-TC; 85378-TC; 85730-TC; 87040-TC; 87081-TC; 87086-TC; 87400; 93307-TC; 93971-TC; A4606; J1644; J1650; J1956; J7030; J7050; Q9967; Z7610

== ENCOUNTER 2017-09-22 08:43 | Emergency (ER) | payer OTHER ==
[~2017-09-22] VITALS: Ht 175.3 cm; Wt 90.7 kg
[~2017-09-22 08:43] MED LIST changes: +ACET-868 PO; +APIX5TAB PO; +BISA10SU8 RC; +HYDR-3974 PO; -LEVO500T75 PO; +MAGN400O6 PO; -METH4TAB3 PO; +NA P133E RC
[2017-09-22] MEDS ORDERED: HYDROCODONE/APAP 5/325MG 1 EACH TABLET PO ONE (09:00)
[2017-09-22 09:37] LABS: BASOPHILS % (AUTO) 0.3 % (0.0-2.0); EOSINOPHILS % (AUTO) 3.4 % (0.0-6.0); HEMATOCRIT 46 % (39-51); HEMOGLOBIN 15.7 g/dL (13.5-17.5); LYMPHOCYTES # (AUTO) 1.8 /CMM (0.8-4.8); MEAN CORPUSCULAR HGB CONC 34 g/dl (31.0-36.0); MEAN CORPUSCULAR VOLUME 84 fL (80-96); MONOCYTES # (AUTO) 0.4 /CMM (0.1-1.30); MONOCYTES % (AUTO) 7.3 % (2.0-12.0); NEUTROPHILS # (AUTO) 3.2 /CMM (1.8-8.9); PLATELET COUNT (AUTO) 185 /CMM (150-450); RED BLOOD CELL COUNT(AUTO) 5.53 MIL/uL (4.5-6.0); WHITE BLOOD COUNT (AUTO) 5.6 K/uL (4.3-11.0)
[2017-09-22 09:43] LABS: CALCIUM, SERUM 8.9 mg/dL (8.5-10.1); CREATININE 1.2 mg/dL (0.6-1.3); POTASSIUM 4.1 mmol/L (3.5-5.1)
--- NOTE | 2017-09-22 09:45 | NUR ---
[id number]. A/OX 4. BREATHING EVEN AND UNLABORED. NO SOB, NAD, VITALS STABLE. SAFETY AND COMFORT MEASURES IN PLACE. AWAITING MD ORDERS.
[2017-09-22] MEDS ORDERED: HYDROCODONE/APAP 5/325MG 1 EACH TABLET ONE (10:00)
--- NOTE | 2017-09-22 10:05 | NUR ---
PATIENT REFUSED NORCO AT THIS TIME, STATING HE IS NOT HAVING ANY PAIN AT THIS TIME.
--- NOTE | 2017-09-22 11:36 | NUR ---
[facility] CALLED ETA 1200 TRANSFER#[id number]
--- NOTE | 2017-09-22 12:15 | NUR ---
REPORT GIVEN TO EMT AT BEDSIDE. PATIENT TRANSPORTED BACK TO [place] VIA AMBULANCE. DISCHARGE INSTRUCTIONS PROVIDED.
[2017-09-22 12:35] VITALS: BP 132/61
[2018-01-03] MEDS ORDERED: BUSP5TAB3 PO (14:20)
[2018-01-03] MEDS ORDERED: CARB1TAB63 PO ×2 (14:20)
[2018-01-03] MEDS ORDERED: ROPI0.5T PO (14:20)
== END 2017-09-22 12:20 ==
LOC: ER 08:44
DX: M54.6 Pain in thoracic spine (principal); I10 Essential (primary) hypertension; E78.5 Hyperlipidemia, unspecified; I25.2 Old myocardial infarction; F32.9 Major depressive disorder, single episode, unspecified; F41.9 Anxiety disorder, unspecified; Z88.0 Allergy status to penicillin; Z87.01 Personal history of pneumonia (recurrent); Z87.442 Personal history of urinary calculi; Z88.1 Allergy status to other antibiotic agents; Z86.711 Personal history of pulmonary embolism; Z79.01 Long term (current) use of anticoagulants
CPT/HCPCS: 36415; 80048-TC; 85025-TC; A4606; Z7610

== ENCOUNTER 2017-10-21 19:13 | Emergency (ER) | payer OTHER ==
[~2017-10-21] VITALS: Ht 175.3 cm; Wt 103.4 kg
--- NOTE | 2017-10-21 19:24 | NUR ---
PT BIBPA FROM [facility] FOR INCREASED WEAKNESS AND DIZZINESS X1 WK. PT AOX3 RR EVEN AND UNLABORED. NO SOB NOTED. NAD NOTED. NO NVD AT THIS TIME. PT GOWNED AND PLACED ON MONITOR WAITING FOR MD MCWILLIAMS. 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
--- NOTE | 2017-10-21 19:42 | NUR ---
DR. MOFFETT AT BEDSIDE FOR EVAL.
[2017-10-21 19:50] LABS: BASOPHILS # (AUTO) 0.2 /CMM (0.0-0.2); EOSINOPHILS % (AUTO) 2.9 % (0.0-6.0); HEMATOCRIT 48 % (39-51); HEMOGLOBIN 16.3 g/dL (13.5-17.5); LYMPHOCYTES % (AUTO) 29.2 % (20.0-44.0); MEAN CORPUSCULAR HGB CONC 34 g/dl (31.0-36.0); MEAN CORPUSCULAR VOLUME 84 fL (80-96); MONOCYTES # (AUTO) 0.4 /CMM (0.1-1.30); MONOCYTES % (AUTO) 5.7 % (2.0-12.0); NEUTROPHILS # (AUTO) 3.9 /CMM (1.8-8.9); NEUTROPHILS % (AUTO) 59.2 % (43.0-81.0); PLATELET COUNT (AUTO) 196 /CMM (150-450); RED BLOOD CELL COUNT(AUTO) 5.69 MIL/uL (4.5-6.0); WHITE BLOOD COUNT (AUTO) 6.7 K/uL (4.3-11.0)
[2017-10-21 20:04] LABS: CALCIUM, SERUM 9.2 mg/dL (8.5-10.1); CARBON DIOXIDE 30 mmol/L (21-32); CHLORIDE 105 mmol/L (98-107); GLUCOSE 125 mg/dL (74-106); POTASSIUM 4.1 mmol/L (3.5-5.1); SODIUM SERUM 142 mmol/L (136-145); UREA NITROGEN, BLOOD 15 mg/dL (7-18)
[2017-10-21 20:07] LABS: INR 0.97 (0.85-1.15); TROPONIN I < 0.017 ng/mL (0.00-0.056)
[2017-10-21 20:10] LABS: ALANINE AMINOTRANSFERASE 76 U/L (12-78); ALBUMIN 3.4 g/dL (3.4-5.0); ALKALINE PHOSPHATASE 57 U/L (46-116); ASPARTATE AMINOTRANSFERASE 65 U/L (15-37); BILIRUBIN,DIRECT 0.1 mg/dL (0.0-0.2); BILIRUBIN,TOTAL 0.5 mg/dL (0.2-1.0); TOTAL PROTEIN, SERUM 7.4 g/dL (6.4-8.2)
--- NOTE | 2017-10-21 20:20 | NUR ---
RADIOLOGY AT BEDSIDE FOR CXR
--- NOTE | 2017-10-21 20:43 | NUR ---
UNABLE TO COLLECT URINE, DR. MOFFETT MADE AWARE.
--- NOTE | 2017-10-21 20:51 | NUR ---
CALLED [facility] AND ARRANGED A BLS TRANSPORT BACK TO THEIR ALF, [facility] WAS GIVEN A CHIEF CUSTOMER OFFICER TIME OF [phone] TRIP #: [id number]
--- NOTE | 2017-10-21 21:05 | NUR ---
ATTEMPTED TO CALL [facility] X3 TIMES FOR REPORT, NO ONE ANSWERING AT THIS TIME.
--- NOTE | 2017-10-21 21:30 | NUR ---
IV removed. Catheter intact and site benign. Pressure and 4x4 applied to site. No bleeding noted. REPORT GIVEN TO EMT FROM [place] [id number]. PT WITH ALL PERSONAL BELONGINGS. PT AWARE HE WILL BE TRANSFERRED BACK TO [address] [place] [address]. PT TO BE TRANSFERRED VIA [facility]. VSS.
[2017-10-21 21:39] VITALS: BP 142/102
[2018-01-03] MEDS ORDERED: ROPI0.5T PO (14:20)
[2018-01-03] MEDS ORDERED: CARB1TAB63 PO ×2 (14:20)
[2018-01-03] MEDS ORDERED: BUSP5TAB3 PO (14:20)
== END 2017-10-21 21:40 | disposition home or self-care (01) ==
LOC: ER 19:19
DX: R53.1 Weakness (principal); R42 Dizziness and giddiness; I10 Essential (primary) hypertension; I25.2 Old myocardial infarction; E78.5 Hyperlipidemia, unspecified; F32.9 Major depressive disorder, single episode, unspecified; F41.9 Anxiety disorder, unspecified; Z87.442 Personal history of urinary calculi; Z87.01 Personal history of pneumonia (recurrent); Z86.718 Personal history of other venous thrombosis and embolism; Z88.0 Allergy status to penicillin; Z88.1 Allergy status to other antibiotic agents
CPT/HCPCS: 36415; 71045; 80048; 80076; 83605; 84484; 85025; 85730; 87040 ×2; 93005; 99285; A4606; Z7610

== ENCOUNTER 2017-10-23 18:40 | Emergency (ER) | payer OTHER ==
[~2017-10-23] VITALS: Ht 175.3 cm; Wt 110.2 kg
--- NOTE | 2017-10-23 19:08 | NUR ---
Moustapha griffin in [facility] - 10/23/17 at 1914 by LUCAS RECEIVED REPORT FROM BRITTANEY CASTELAN
--- NOTE | 2017-10-23 19:15 | NUR ---
RECEIVED REPORT FROM BRITTANEY SUAREZ FOR FLIP.
[2017-10-23] MEDS ORDERED: MORPHINE SULFATE INJ 4 MG/ML DISP.SYRIN ONE (19:25)
[2017-10-23] MEDS ORDERED: MORPHINE SULFATE INJ 2 MG/ML DISP.SYRIN IM ONE (19:30)
[2017-10-23 19:48] LABS: APPEARANCE,URINE Slightly Cloudy (CLEAR); BILIRUBIN,URINE Negative (NEGATIVE); BLOOD, URINE Large Ery/uL (NEGATIVE); COLOR,URINE Yellow (YELLOW); KETONES,URINE Negative (NEGATIVE); LEUKOCYTE ESTERASE ,URINE Negative (NEGATIVE); NITRITE, URINE Negative (NEGATIVE); PROTEIN,URINE Negative (NEGATIVE); UGLUCOSE Negative (NEGATIVE)
[2017-10-23 20:02] LABS: BACTERIA,URINE Few /HPF (None Seen); RBC,URINE TOO NUMEROUS TO COUN /HPF (0-2)
[2017-10-23 20:03] LABS: SQUAMOUS EPITHELIAL CELL,UR Moderate /HPF (None Seen); URINE AMORPHOUS URATE Moderate /HPF (None Seen)
[2017-10-23 20:04] LABS: MUCUS,URINE Few /LPF (None Seen)
--- NOTE | 2017-10-23 20:42 | NUR ---
CALLED [facility] FOR BLS TRANSPORT TO [facility]. BLS CREW WAS ALREADY ON SCENE. TRIP #: [id number]
[2017-10-23 20:50] VITALS: BP 147/87
--- NOTE | 2017-10-23 20:59 | NUR ---
[facility] BEDSIDE TO TRANSPORT PT BACK TO [facility]. TRIED CALLING [facility] TO GIVE REPORT, NO ANSWER. REPORT GIVEN TO EMS CREW FOR FLIP. VSS UPON DISCHARGE
--- NOTE | 2017-10-23 21:09 | NUR ---
Patient discharged to home in stable condition. Written and verbal after care instructions given. Patient verbalizes understanding of instruction. VSS UPON DISCHARGE
[2018-01-03] MEDS ORDERED: BUSP5TAB3 PO (14:20)
[2018-01-03] MEDS ORDERED: CARB1TAB63 PO ×2 (14:20)
[2018-01-03] MEDS ORDERED: ROPI0.5T PO (14:20)
== END 2017-10-23 21:10 | disposition home or self-care (01) ==
LOC: ER 18:46
DX: N23 Unspecified renal colic (principal); R31.29 Other microscopic hematuria; I10 Essential (primary) hypertension; E78.5 Hyperlipidemia, unspecified; I25.2 Old myocardial infarction; J96.10 Chronic respiratory failure, unspecified whether with hypoxia or hypercapnia; F41.9 Anxiety disorder, unspecified; F32.9 Major depressive disorder, single episode, unspecified; Z87.442 Personal history of urinary calculi; Z86.711 Personal history of pulmonary embolism; Z88.0 Allergy status to penicillin; Z88.1 Allergy status to other antibiotic agents
CPT/HCPCS: 81001; 96372; 99283; A4606; J2270; Z7610; 81000-TC

== ENCOUNTER 2018-01-01 18:50 | Inpatient (IN) | payer OTHER ==
[~2018-01-01] VITALS: Ht 177.8 cm; Wt 114.8 kg
[2018-01-01 20:20] LABS: BASOPHILS # (AUTO) 0.2 /CMM (0.0-0.2); BASOPHILS % (AUTO) 4.3 % (0.0-2.0); EOSINOPHILS % (AUTO) 1.8 % (0.0-6.0); HEMATOCRIT 52 % (39-51); HEMOGLOBIN 16.8 g/dL (13.5-17.5); LYMPHOCYTES # (AUTO) 1.7 /CMM (0.8-4.8); LYMPHOCYTES % (AUTO) 31.4 % (20.0-44.0); MEAN CORPUSCULAR HEMOGLOBIN 28 PG (26.0-33.0); MEAN CORPUSCULAR HGB CONC 32 g/dl (31.0-36.0); MEAN CORPUSCULAR VOLUME 86 fL (80-96); MONOCYTES # (AUTO) 0.4 /CMM (0.1-1.30); MONOCYTES % (AUTO) 7.5 % (2.0-12.0); NEUTROPHILS # (AUTO) 2.9 /CMM (1.8-8.9); PLATELET COUNT (AUTO) 198 /CMM (150-450); RDW COEFFICIENT OF VARIATION 12.9 (11.5-15.0); RED BLOOD CELL COUNT(AUTO) 6.01 MIL/uL (4.5-6.0); WHITE BLOOD COUNT (AUTO) 5.3 K/uL (4.3-11.0)
[2018-01-01 20:28] LABS: APPEARANCE,URINE CLEAR (CLEAR); BILIRUBIN,URINE NEGATIVE (NEGATIVE); BLOOD, URINE NEGATIVE Ery/uL (NEGATIVE); COLOR,URINE YELLOW (YELLOW); KETONES,URINE NEGATIVE (NEGATIVE); LEUKOCYTE ESTERASE ,URINE NEGATIVE (NEGATIVE); NITRITE, URINE NEGATIVE (NEGATIVE); PROTEIN,URINE NEGATIVE (NEGATIVE); UGLUCOSE NEGATIVE (NEGATIVE); UROBILINOGEN,URINE 0.2 EU/dL (0.2)
[2018-01-01 20:34] LABS: CALCIUM, SERUM 8.8 mg/dL (8.5-10.1); CARBON DIOXIDE 30 mmol/L (21-32); CHLORIDE 103 mmol/L (98-107); CREATININE 1.1 mg/dL (0.6-1.3); GLUCOSE 127 mg/dL (74-106); POTASSIUM 3.9 mmol/L (3.5-5.1); SODIUM SERUM 142 mmol/L (136-145); UREA NITROGEN, BLOOD 14 mg/dL (7-18)
[2018-01-01 20:39] LABS: ALANINE AMINOTRANSFERASE 16 U/L (12-78); ALBUMIN 3.6 g/dL (3.4-5.0); ALKALINE PHOSPHATASE 70 U/L (46-116); ASPARTATE AMINOTRANSFERASE 73 U/L (15-37); BILIRUBIN,DIRECT 0.2 mg/dL (0.0-0.2); BILIRUBIN,TOTAL 0.8 mg/dL (0.2-1.0); TOTAL PROTEIN, SERUM 7.5 g/dL (6.4-8.2)
[2018-01-01 20:42] LABS: TROPONIN I < 0.017 ng/mL (0.00-0.056)
[2018-01-01 22:00] VITALS: BP 138/81
[2018-01-01] MEDS ORDERED: HYDROCODONE/APAP 5/325MG 1 EACH TABLET PO PRN (22:00)
[2018-01-01] MEDS ORDERED: MAGNESIUM HYDROXIDE 30 ML UDC PO PRN (22:00)
[2018-01-01] MEDS ORDERED: ONDANSETRON HCL/PF 4 MG/2 ML VIAL IVP PRN (22:00)
[2018-01-01] MEDS ORDERED: Z GUARD REMEDY 2 OZ OINT TP PRN (22:00)
[2018-01-01] MEDS ORDERED: ACETAMINOPHEN 325 MG TABLET PO PRN (22:00)
[2018-01-01] MEDS ORDERED: MAG HYDROX/AL HYDROX/SIMETH 30 ML UDC PO PRN (22:00)
[2018-01-01] MEDS ORDERED: MIRTAZAPINE 45 MG TABLET PO SCH (22:00)
[2018-01-01] MEDS ORDERED: CARB-93 PO (22:24)
[2018-01-01] MEDS ORDERED: FURO-144 PO (22:24)
[2018-01-01] MEDS ORDERED: POTA20TA83 PO (22:24)
[2018-01-01] MEDS ORDERED: MIRT15TA PO (22:24)
[2018-01-01] MEDS ORDERED: TAMS-12 PO (22:29)
[2018-01-01] MEDS ORDERED: CARBIDOPA/LEVODOPA 25/100 MG 1 UDTAB PO SCH (23:00)
[2018-01-01] MEDS: MIRTAZAPINE 15 MG TABLET PO SCH (23:18)
[2018-01-02] VITALS: BP 133/83
[2018-01-02] MEDS ORDERED: CARBIDOPA/LEVODOPA 25/100 MG 1 UDTAB PO SCH (04:48)
[2018-01-02 06:32] LABS: BASOPHILS % (AUTO) 0.6 % (0.0-2.0); EOSINOPHILS % (AUTO) 2.6 % (0.0-6.0); HEMATOCRIT 47 % (39-51); HEMOGLOBIN 15.2 g/dL (13.5-17.5); LYMPHOCYTES # (AUTO) 2.1 /CMM (0.8-4.8); LYMPHOCYTES % (AUTO) 36.9 % (20.0-44.0); MEAN CORPUSCULAR HEMOGLOBIN 29 PG (26.0-33.0); MEAN CORPUSCULAR HGB CONC 32 g/dl (31.0-36.0); MEAN CORPUSCULAR VOLUME 89 fL (80-96); MONOCYTES # (AUTO) 0.5 /CMM (0.1-1.30); MONOCYTES % (AUTO) 8.5 % (2.0-12.0); NEUTROPHILS % (AUTO) 51.4 % (43.0-81.0); PLATELET COUNT (AUTO) 193 /CMM (150-450); RDW COEFFICIENT OF VARIATION 13.4 (11.5-15.0); WHITE BLOOD COUNT (AUTO) 5.8 K/uL (4.3-11.0)
[2018-01-02 06:54] LABS: CALCIUM, SERUM 8.4 mg/dL (8.5-10.1); CREATININE 1.1 mg/dL (0.6-1.3); PHOSPHORUS 3.8 mg/dL (2.5-4.9); POTASSIUM 3.6 mmol/L (3.5-5.1)
[2018-01-02 08:00] VITALS: BP 117/76
[2018-01-02] MEDS: FUROSEMIDE 40 MG TABLET PO SCH (09:01)
[2018-01-02] MEDS: APIXABAN 5 MG TABLET PO SCH ×2 (09:01→16:06)
[2018-01-02] MEDS: ropiniROLE 0.5 MG TABLET PO SCH ×3 (10:42→16:03)
[2018-01-02] MEDS: CARBIDOPA/LEVA CR 25/100MG 1 TAB.SA PO SCH ×2 (12:26→16:06)
[2018-01-02 16:00] VITALS: BP 120/80
[2018-01-02] MEDS: clonazePAM 0.5 MG TABLET PO PRN (18:44)
[2018-01-02 20:00] VITALS: BP 123/75
[2018-01-02] MEDS: MIRTAZAPINE 15 MG TABLET PO SCH (22:20)
[2018-01-02] MEDS: ZOLPIDEM TARTRATE 5 MG TABLET PO PRN (23:44)
[2018-01-03 05:34] LABS: BASOPHILS % (AUTO) 0.5 % (0.0-2.0); EOSINOPHILS % (AUTO) 1.7 % (0.0-6.0); HEMATOCRIT 49 % (39-51); LYMPHOCYTES # (AUTO) 1.9 /CMM (0.8-4.8); LYMPHOCYTES % (AUTO) 31.4 % (20.0-44.0); MEAN CORPUSCULAR HEMOGLOBIN 29 PG (26.0-33.0); MEAN CORPUSCULAR HGB CONC 33 g/dl (31.0-36.0); MEAN CORPUSCULAR VOLUME 88 fL (80-96); MONOCYTES # (AUTO) 0.6 /CMM (0.1-1.30); MONOCYTES % (AUTO) 9.2 % (2.0-12.0); NEUTROPHILS # (AUTO) 3.5 /CMM (1.8-8.9); NEUTROPHILS % (AUTO) 57.2 % (43.0-81.0); PLATELET COUNT (AUTO) 197 /CMM (150-450); RDW COEFFICIENT OF VARIATION 13.6 (11.5-15.0); RED BLOOD CELL COUNT(AUTO) 5.59 MIL/uL (4.5-6.0); WHITE BLOOD COUNT (AUTO) 6.2 K/uL (4.3-11.0)
[2018-01-03 05:55] LABS: CALCIUM, SERUM 8.5 mg/dL (8.5-10.1); POTASSIUM 3.7 mmol/L (3.5-5.1)
[2018-01-03 08:00] VITALS: BP 130/90
[2018-01-03] MEDS: FUROSEMIDE 40 MG TABLET PO SCH (08:26)
[2018-01-03] MEDS: CARBIDOPA/LEVA CR 25/100MG 1 TAB.SA PO SCH ×3 (08:26→16:28)
[2018-01-03] MEDS: APIXABAN 5 MG TABLET PO SCH ×2 (08:26→16:28)
[2018-01-03] MEDS: ropiniROLE 0.5 MG TABLET PO SCH ×3 (08:26→16:28)
[2018-01-03] MEDS ORDERED: CARB1TAB63 PO ×2 (14:20)
[2018-01-03] MEDS ORDERED: ROPI0.5T PO (14:20)
[2018-01-03] MEDS ORDERED: BUSP5TAB3 PO (14:20)
[2018-01-03 16:00] VITALS: BP 128/74
[2018-01-03] MEDS: busPIRone 5 MG TABLET PO SCH (16:28)
[2018-01-03] MEDS: clonazePAM 0.5 MG TABLET PO PRN (19:41)
[2018-01-03 20:00] VITALS: BP 126/83
[2018-01-03] MEDS ORDERED: CARBIDOPA/LEVA CR 25/100MG 1 TAB.SA PO SCH (21:00)
[2018-01-03] MEDS: ZOLPIDEM TARTRATE 5 MG TABLET PO PRN (22:32)
[2018-01-04 08:00] VITALS: BP 126/86
[2018-01-04] MEDS: ropiniROLE 0.5 MG TABLET PO SCH ×2 (08:20→13:20)
[2018-01-04] MEDS: CARBIDOPA/LEVA CR 25/100MG 1 TAB.SA PO SCH ×2 (08:20→13:20)
[2018-01-04] MEDS: busPIRone 5 MG TABLET PO SCH ×2 (08:20→13:20)
[2018-01-04] MEDS: APIXABAN 5 MG TABLET PO SCH (08:21)
[2018-01-04] MEDS: FUROSEMIDE 40 MG TABLET PO SCH (08:21)
[2018-01-04] MEDS: clonazePAM 0.5 MG TABLET PO PRN (15:29)
== END 2018-01-04 15:55 | DRG 58 ==
LOC: ER 18:56 → MED 21:40
PROVIDERS: ADMIT Nurse Practitioner Acute Care; ATTEND Nurse Practitioner Acute Care
DX: G25.0 Essential tremor (principal); D68.59 Other primary thrombophilia; E11.40 Type 2 diabetes mellitus with diabetic neuropathy, unspecified; R53.2 Functional quadriplegia; E11.65 Type 2 diabetes mellitus with hyperglycemia; E66.01 Morbid (severe) obesity due to excess calories; G25.2 Other specified forms of tremor; G20 Parkinson's disease; F32.9 Major depressive disorder, single episode, unspecified; F41.9 Anxiety disorder, unspecified; E78.5 Hyperlipidemia, unspecified; I25.2 Old myocardial infarction; Z87.442 Personal history of urinary calculi; Z86.718 Personal history of other venous thrombosis and embolism; Z86.711 Personal history of pulmonary embolism; I10 Essential (primary) hypertension; Z88.1 Allergy status to other antibiotic agents; Z88.0 Allergy status to penicillin; Z79.01 Long term (current) use of anticoagulants; Z74.09 Other reduced mobility; G89.29 Other chronic pain; Z68.36 Body mass index [BMI] 36.0-36.9, adult
CPT/HCPCS: 36415; 70450-TC; 71045-TC; 80048-TC; 80061-TC; 80076-TC; 81000-TC; 82962-TC; 83735-TC; 84100-TC; 84484-TC; 85025-TC; 87081-TC; 97110-TC; 97116-TC; 97530-TC; A4606; Z7610

== ENCOUNTER 2018-01-17 20:02 | Emergency (ER) | payer OTHER ==
[~2018-01-17] VITALS: Ht 177.8 cm; Wt 111.6 kg
[~2018-01-17 20:02] MED LIST changes: +BUSP5TAB3 PO; +CARB1TAB63 PO; +FURO-144 PO; -MIRT45TA PO; +POTA20TA83 PO; +ROPI0.5T PO; +TAMS-12 PO
[2018-01-17] MEDS ORDERED: LORAZEPAM 1 MG TABLET PO ONE (21:00)
--- NOTE | 2018-01-17 21:00 | NUR ---
RADIOLOGY AT BEDSIDE FOR CXR
[2018-01-17] MEDS ORDERED: LORAZEPAM 1 MG TABLET ONE (21:06)
--- NOTE | 2018-01-17 21:10 | NUR ---
LAB AT BEDSIDE FOR BLOOD DRAW.
[2018-01-17 21:23] LABS: BASOPHILS % (AUTO) 0.4 % (0.0-2.0); EOSINOPHILS % (AUTO) 1.8 % (0.0-6.0); HEMATOCRIT 50 % (39-51); HEMOGLOBIN 16.5 g/dL (13.5-17.5); LYMPHOCYTES # (AUTO) 1.9 /CMM (0.8-4.8); LYMPHOCYTES % (AUTO) 30.1 % (20.0-44.0); MEAN CORPUSCULAR HGB CONC 33 g/dl (31.0-36.0); MEAN CORPUSCULAR VOLUME 86 fL (80-96); MONOCYTES # (AUTO) 0.5 /CMM (0.1-1.30); MONOCYTES % (AUTO) 8.4 % (2.0-12.0); NEUTROPHILS # (AUTO) 3.7 /CMM (1.8-8.9); NEUTROPHILS % (AUTO) 59.3 % (43.0-81.0); PLATELET COUNT (AUTO) 196 /CMM (150-450); RDW COEFFICIENT OF VARIATION 12.6 (11.5-15.0); RED BLOOD CELL COUNT(AUTO) 5.78 MIL/uL (4.5-6.0); WHITE BLOOD COUNT (AUTO) 6.2 K/uL (4.3-11.0)
[2018-01-17 21:59] LABS: CALCIUM, SERUM 8.9 mg/dL (8.5-10.1); CARBON DIOXIDE 30 mmol/L (21-32); CHLORIDE 102 mmol/L (98-107); CREATININE 1.1 mg/dL (0.6-1.3); GLUCOSE 213 mg/dL (74-106); POTASSIUM 3.8 mmol/L (3.5-5.1); SODIUM SERUM 141 mmol/L (136-145); UREA NITROGEN, BLOOD 16 mg/dL (7-18)
[2018-01-17 22:04] LABS: TROPONIN I < 0.017 ng/mL (0.00-0.056)
[2018-01-17 22:07] LABS: INR 1.05 (0.87-1.13)
[2018-01-17] MEDS ORDERED: ACETAMINOPHEN ES 500 MG TABLET PO ONE (22:30)
[2018-01-17] MEDS ORDERED: ACETAMINOPHEN ES 500 MG TABLET ONE (22:41)
--- NOTE | 2018-01-17 22:50 | NUR ---
Amitaz called [facility] [phone] #[id number]
--- NOTE | 2018-01-17 23:50 | NUR ---
REPORT GIVEN TO EMT AMBUL[facility]helsi FOR FLIP. VSS. PT TRANSFERRED BACK TO FACILITY VIA GURNEY. AMBULNZ TOOK OVER CARE. Written and verbal after care instructions given. Patient verbalizes understanding of instruction.
[2018-01-18 01:50] VITALS: BP 130/53
== END 2018-01-18 01:52 | disposition home or self-care (01) ==
LOC: ER 20:04
DX: F41.0 Panic disorder [episodic paroxysmal anxiety] (principal); R07.89 Other chest pain; I10 Essential (primary) hypertension; E78.5 Hyperlipidemia, unspecified; I25.2 Old myocardial infarction; F32.9 Major depressive disorder, single episode, unspecified; Z87.442 Personal history of urinary calculi; Z86.711 Personal history of pulmonary embolism; Z87.01 Personal history of pneumonia (recurrent); Z86.718 Personal history of other venous thrombosis and embolism; Z88.0 Allergy status to penicillin; Z88.1 Allergy status to other antibiotic agents; Z79.899 Other long term (current) drug therapy
CPT/HCPCS: 36415; 71045; 80048; 84484; 85025; 85730; 93005 ×2; 99285; A4606; Z7610